=== PATIENT | female | born 1950 | race African-American/Black ===

== ENCOUNTER 2021-11-04 12:52 | Emergency (ER) | payer MEDICARE, MEDICAID ==
[~2021-11-04] VITALS: Ht 167.6 cm; Wt 114.0 kg
[2021-11-04 15:22] LABS: BASOPHILS % 0.3 % (0.0-2.0); CHLORIDE 109 mEq/L (98-107); EOSINOPHILS % 2.6 % (0.0-5.0); HEMATOCRIT. 33.8 % (36.0-48.0); HEMOGLOBIN. 11.2 g/dL (12.0-16.0); LYMPHOCYTES % 19.4 % (20.0-50.0); MEAN CORPUSCULAR HEMOGLOBIN 29.5 pg (28.0-32.0); MEAN CORPUSCULAR VOLUME 89.2 fL (81.0-99.0); MEAN PLATELET VOLUME 8.9 fl (7.4-10.4); MONOCYTES % 7.4 % (2.0-8.0); NEUTROPHILS % 70.3 % (40.0-76.0); PLATELET 260 x1000/uL (130-400); RED BLOOD CELL COUNT 3.79 mill/uL (4.2-5.4); RED CELL DISTRIBUTION WIDTH 15.7 % (11.6-14.6)
[2021-11-04] MEDS ORDERED: KETOROLAC 15MG/ML VIAL IV ONE (17:45)
[2021-11-04 17:48] VITALS: BP 160/74
[2021-11-04] MEDS ORDERED: KETOROLAC 15MG/ML VIAL IM NR (18:00)
[2021-11-04] MEDS ORDERED: KETOROLAC 60MG/2ML VIAL IM NR (18:00)
== END 2021-11-04 19:43 | disposition home or self-care (01) ==
LOC: ER 14:17
DX: S29.8XXA Other specified injuries of thorax, initial encounter (principal); J84.10 Pulmonary fibrosis, unspecified; R07.89 Other chest pain; I11.0 Hypertensive heart disease with heart failure; I50.9 Heart failure, unspecified; J45.909 Unspecified asthma, uncomplicated; Z88.3 Allergy status to other anti-infective agents; Z88.5 Allergy status to narcotic agent; Z90.49 Acquired absence of other specified parts of digestive tract; Z85.3 Personal history of malignant neoplasm of breast; V43.52XA Car driver injured in collision with other type car in traffic accident, initial encounter; W22.11XA Striking against or struck by driver side automobile airbag, initial encounter; Y93.89 Activity, other specified; Y92.488 Other paved roadways as the place of occurrence of the external cause
CPT/HCPCS: 36415; 70450; 71045; 71111; 71250; 80053; 83690; 84484; 85025; 93005; 96372; 99285; J1885

== ENCOUNTER → 2024-09-21 | Outpatient (CLI) | payer MEDICARE, MEDICAID | END | disposition home or self-care (01) | LOC: MRI 14:24 | PROVIDERS: ATTEND Neurological Surgery | DX: M48.05 Spinal stenosis, thoracolumbar region (principal); M47.815 Spondylosis without myelopathy or radiculopathy, thoracolumbar region; M51.27 Other intervertebral disc displacement, lumbosacral region; M51.25 Other intervertebral disc displacement, thoracolumbar region | CPT/HCPCS: 72148 ==

== ENCOUNTER → 2024-09-30 | Outpatient (CLI) | payer MEDICARE, MEDICAID | END | disposition home or self-care (01) | LOC: MRI 09:31 | PROVIDERS: ATTEND Neurological Surgery | DX: M47.812 Spondylosis without myelopathy or radiculopathy, cervical region (principal); M50.33 Other cervical disc degeneration, cervicothoracic region; M50.222 Other cervical disc displacement at C5-C6 level; M48.02 Spinal stenosis, cervical region; M54.50 Low back pain, unspecified | CPT/HCPCS: 72141 ==

== ENCOUNTER 2024-12-14 22:05 | Inpatient (IN) | payer MEDICARE, MEDICAID ==
[~2024-12-14] VITALS: Ht 165.1 cm; Wt 130.6 kg
[~2024-12-14 22:05] MED LIST: ACET-3524 PO; ALBU18HF2 IH; ALLO100T PO; ATOR20TA65 PO; BUDE0.5A3 NEB; CYCL10TA21 PO; DAPA10TA PO; ERGO1250 PO; FLUT1BLS IH; FLUT1BLS3 IH; FURO20TA4 PO; GABA-1180 PO; IPRA3AMP31 NEB; LACT10PA5 PO; LINA145C PO; SEMA2.4P SUBCUT; VALS1TAB79 PO
[2024-12-14 23:00] VITALS: BP 159/73; PULSE 88; RESP 18; TEMP 36.9
[2024-12-14] MEDS ORDERED: IPRATROPIUM/ALBUTEROL 0.5-3(2.5)MG/3ML NEB HHN PRN (23:00)
[2024-12-14] MEDS ORDERED: *PATIENT'S OWN MEDICATION STORAGE XX SCH (23:00)
[2024-12-14] MEDS ORDERED: NALOXONE HCL 0.4MG/ML 1ML VIAL IV PRN (23:00)
[2024-12-14] MEDS ORDERED: BISACODYL 10MG SUPP PR PRN (23:00)
[2024-12-14] MEDS ORDERED: DEXTROSE 50% WATER 50ML SYRINGE IV PRN (23:00)
[2024-12-15] MEDS: CYCLOBENZAPRINE 10MG TABLET PO SCH (05:56)
[2024-12-15 08:00] VITALS: BP 170/80; PULSE 83; RESP 20; TEMP 36.2; O2SAT 97
[2024-12-15] MEDS: PANTOPRAZOLE SODIUM 40 MG/VIAL IV SCH (08:18)
[2024-12-15] MEDS: CLONIDINE 0.1MG TABLET PO PRN (08:18)
[2024-12-15] MEDS: AMLODIPINE 2.5MG TABLET PO SCH (08:18)
[2024-12-15] MEDS: POLYETHYLENE GLYCOL 3350 (17GM) 1 DOSE PACK PO SCH (09:00)
[2024-12-15 09:50] LABS: BASOPHILS % 0.3 % (0.0-2.0); EOSINOPHILS % 2.4 % (0.0-5.0); HEMATOCRIT. 33.7 % (36.0-48.0); HEMOGLOBIN. 10.7 g/dL (12.0-16.0); LYMPHOCYTES % 10.8 % (20.0-50.0); MEAN CORPUSCULAR HEMOGLOBIN 28.9 pg (28.0-32.0); MEAN CORPUSCULAR HGB CONC 31.6 g/dL (31.0-37.0); MEAN CORPUSCULAR VOLUME 91.5 fL (81.0-99.0); MEAN PLATELET VOLUME 8.5 fl (7.4-10.4); NEUTROPHILS % 76.5 % (40.0-76.0); PLATELET 294 x1000/uL (130-400); RED BLOOD CELL COUNT 3.69 mill/uL (4.2-5.4); RED CELL DISTRIBUTION WIDTH 15.3 % (11.6-14.6); WHITE BLOOD COUNT 15.4 x1000/uL (4.5-11.0)
[2024-12-15] MEDS: ATORVASTATIN CALCIUM 20MG TABLET PO SCH (10:00)
[2024-12-15 10:02] LABS: CHLORIDE 111 mEq/L (98-107); POTASSIUM 4.2 mEq/L (3.5-5.1)
[2024-12-15 10:03] LABS: SODIUM 145 mEq/L (136-145)
[2024-12-15 10:05] LABS: CALCIUM 10.9 mg/dL (8.7-10.4); CARBON DIOXIDE 25 mEq/L (21-32)
[2024-12-15 10:10] LABS: CREATININE 1.5 mg/dL (0.6-1.0); GLUCOSE 79 mg/dL (70-105); UREA NITROGEN BLOOD 29 mg/dL (9-23)
[2024-12-15 10:11] LABS: ALANINE AMINOTRANSFERASE 25 IU/L (10-49)
[2024-12-15 10:12] LABS: ALBUMIN 3.6 g/dL (3.2-4.8); ASPARTATE AMINOTRANSFERASE 39 IU/L (<34); BILIRUBIN TOTAL 0.9 mg/dL (0.1-1.0); PREALBUMIN 5.7 mg/dl (10.0-40.0); PROTEIN TOTAL 6.6 g/dL (6.0-8.3)
[2024-12-15] MEDS ORDERED: HYDRALAZINE 20MG/ML VIAL IV PRN (14:15)
[2024-12-15] MEDS ORDERED: HYDRALAZINE 10 MG in SODIUM CHLORIDE 0.9% 49.5 ML IV PRN (14:15)
[2024-12-15] MEDS ORDERED: DEXTROSE 50% WATER 50ML SYRINGE IV PRN (14:15)
[2024-12-15] MEDS: AMLODIPINE 5MG TABLET PO NR (15:23)
[2024-12-15] MEDS: LOSARTAN 50 MG TABLET PO SCH (15:23)
[2024-12-15] MEDS: HYDROCODONE/ACETAMINOPHEN 5/325MG TABLET PO PRN (16:37)
[2024-12-15] MEDS: BLOOD SUGAR DIAGNOSTIC STRIP TEST SCH (16:37)
[2024-12-15 17:24] LABS: IRON 31 ug/dL (50-170)
[2024-12-15 17:27] LABS: TOTAL IRON BINDING CAPACITY 580 ug/dl (250-425)
[2024-12-15 17:30] LABS: FERRITIN 400 ng/mL (10-291)
[2024-12-15 17:31] LABS: VITAMIN B12 SERUM 507 pg/mL (211-911)
[2024-12-15] MEDS: DEXT 5%/0.45% NACL 1000ML 1,000 ML IV SCH (18:30)
[2024-12-15 19:51] VITALS: BP 104/58; PULSE 90; RESP 18; TEMP 36.2; O2SAT 97
[2024-12-15] MEDS: AMLODIPINE 5MG TABLET PO SCH (21:00)
[2024-12-16 06:39] LABS: AMMONIA < 17 uMol/L (<32)
[2024-12-16 07:14] LABS: BASOPHILS % 0.2 % (0.0-2.0); CHLORIDE 112 mEq/L (98-107); EOSINOPHILS % 3.3 % (0.0-5.0); HEMATOCRIT. 31.2 % (36.0-48.0); HEMOGLOBIN. 9.8 g/dL (12.0-16.0); MEAN CORPUSCULAR HEMOGLOBIN 29.2 pg (28.0-32.0); MEAN CORPUSCULAR HGB CONC 31.5 g/dL (31.0-37.0); MEAN PLATELET VOLUME 8.4 fl (7.4-10.4); NEUTROPHILS % 73.5 % (40.0-76.0); PLATELET 253 x1000/uL (130-400); POTASSIUM 4.2 mEq/L (3.5-5.1); RED BLOOD CELL COUNT 3.36 mill/uL (4.2-5.4); RED CELL DISTRIBUTION WIDTH 15.3 % (11.6-14.6); SODIUM 145 mEq/L (136-145); WHITE BLOOD COUNT 15.1 x1000/uL (4.5-11.0)
[2024-12-16 07:17] LABS: CARBON DIOXIDE 25 mEq/L (21-32)
[2024-12-16 07:20] LABS: THYROID STIMULATING HORMONE 0.95 uIU/mL (0.55-4.78)
[2024-12-16 07:21] LABS: PROTEIN TOTAL 6.3 g/dL (6.0-8.3)
[2024-12-16 07:22] LABS: CREATININE 1.5 mg/dL (0.6-1.0); GLUCOSE 117 mg/dL (70-105); IRON 23 ug/dL (50-170); UREA NITROGEN BLOOD 29 mg/dL (9-23)
[2024-12-16 07:24] LABS: ALANINE AMINOTRANSFERASE 19 IU/L (10-49); ALBUMIN 3.4 g/dL (3.2-4.8); ASPARTATE AMINOTRANSFERASE 28 IU/L (<34); BILIRUBIN TOTAL 0.8 mg/dL (0.1-1.0); TOTAL IRON BINDING CAPACITY 442 ug/dl (250-425)
[2024-12-16 08:00] VITALS: BP 140/77; PULSE 78; RESP 20; TEMP 35.5; O2SAT 97
[2024-12-16] MEDS: KETOROLAC 15MG/ML VIAL IV PRN (16:22)
[2024-12-16 17:19] LABS: CLARITY URINE CLEAR (CLEAR); COLOR URINE YELLOW (YELLOW); GLUCOSE URINE NEGATIVE (NEGATIVE); KETONES URINE NEGATIVE (NEGATIVE); LEUKOCYTE ESTERASE URINE TRACE (NEGATIVE); NITRITE URINE NEGATIVE (NEGATIVE); OCCULT BLOOD URINE NEGATIVE (NEGATIVE); PROTEIN URINE 1+ (NEGATIVE); SPECIFIC GRAVITY URINE 1.016 (1.005-1.030)
[2024-12-16 17:46] LABS: WBC URINE 0-2 /hpf (0-2)
[2024-12-16 17:47] LABS: BACTERIA URINE NONE SEEN; RBC URINE NONE SEEN /hpf (0-2); SQUAMOUS EPITHELIAL CELL URINE NONE SEEN /lpf (RARE/1+)
[2024-12-16] MEDS ORDERED: ACETAMINOPHEN 325MG TABLET PO PRN (18:45)
[2024-12-16 20:00] VITALS: BP 162/56; PULSE 68; RESP 18; TEMP 36.3; O2SAT 96
[2024-12-17 08:00] VITALS: BP 182/90; PULSE 72; RESP 20; TEMP 36.6; O2SAT 95
[2024-12-17] MEDS: GABAPENTIN 300MG CAPSULE PO SCH (08:29)
[2024-12-17] MEDS: ERGOCALCIFEROL 50000UNITS CAPSULE PO SCH (15:31)
[2024-12-18 08:00] VITALS: BP 172/79; PULSE 82; RESP 20; TEMP 36; O2SAT 97
[2024-12-18] MEDS: ALLOPURINOL 100 MG TABLET PO SCH (08:36)
[2024-12-18] MEDS: PANTOPRAZOLE 40MG DR TABLET PO SCH (08:37)
[2024-12-18] MEDS: APIXABAN 5 MG TABLET PO SCH (12:27)
[2024-12-18] MEDS: HYDRALAZINE HCL 50MG TABLET PO SCH (14:19)
[2024-12-18 20:00] VITALS: BP 104/62; PULSE 96; RESP 18; TEMP 36.6; O2SAT 96
[2024-12-19 08:00] VITALS: BP 142/57; PULSE 81; RESP 20; TEMP 35.8; TEMP 36.2; O2SAT 92
[2024-12-19 08:33] LABS: POTASSIUM 4.3 mEq/L (3.5-5.1)
[2024-12-19 08:34] LABS: CALCIUM 10.5 mg/dL (8.7-10.4)
[2024-12-19 08:34] LABS: HEMATOCRIT. 33.4 % (36.0-48.0); HEMOGLOBIN. 10.2 g/dL (12.0-16.0); MEAN CORPUSCULAR HEMOGLOBIN 28.4 pg (28.0-32.0); MEAN CORPUSCULAR HGB CONC 30.4 g/dL (31.0-37.0); MEAN CORPUSCULAR VOLUME 93.4 fL (81.0-99.0); MEAN PLATELET VOLUME 8.8 fl (7.4-10.4); PLATELET 230 x1000/uL (130-400); RED BLOOD CELL COUNT 3.58 mill/uL (4.2-5.4); RED CELL DISTRIBUTION WIDTH 15.5 % (11.6-14.6); WHITE BLOOD COUNT 18.6 x1000/uL (4.5-11.0)
[2024-12-19 08:44] LABS: DIFFERENTIAL COMMENT 1
[2024-12-19 08:55] LABS: CREATININE 3.2 mg/dL (0.6-1.0)
[2024-12-19 14:53] LABS: CREATINE KINASE 80 IU/L (34-145)
[2024-12-19 15:23] LABS: PLATELET ESTIMATE NORMAL
[2024-12-19] MEDS: PIPERACILLIN/TAZO 3.375G/50ML 50 ML IV SCH (19:54)
[2024-12-19] MEDS: VANCOMYCIN 1GM/200ML PMX (BAXTER) IV SCH (19:54)
[2024-12-19 20:00] VITALS: BP 136/64; PULSE 68; RESP 18; TEMP 36.3; O2SAT 97
[2024-12-20] MEDS: VANCOMYCIN 1GM/200ML PMX (BAXTER) IV SCH (01:00)
[2024-12-20] MEDS: PANTOPRAZOLE 40MG DR TABLET PO SCH (06:22)
[2024-12-20 07:22] LABS: CALCIUM 10.3 mg/dL (8.7-10.4); POTASSIUM 4.6 mEq/L (3.5-5.1)
[2024-12-20 07:30] LABS: HEMATOCRIT. 32.6 % (36.0-48.0); HEMOGLOBIN. 10.1 g/dL (12.0-16.0); MEAN CORPUSCULAR HEMOGLOBIN 29.1 pg (28.0-32.0); MEAN PLATELET VOLUME 8.9 fl (7.4-10.4); PLATELET 250 x1000/uL (130-400); RED BLOOD CELL COUNT 3.46 mill/uL (4.2-5.4); RED CELL DISTRIBUTION WIDTH 15.8 % (11.6-14.6); WHITE BLOOD COUNT 16.9 x1000/uL (4.5-11.0)
[2024-12-20 07:44] LABS: DIFFERENTIAL COMMENT 1
[2024-12-20 08:00] VITALS: BP 142/62; PULSE 75; RESP 20; TEMP 35.9; O2SAT 100
[2024-12-20 09:43] LABS: CREATININE 4.2 mg/dL (0.6-1.0)
[2024-12-20] MEDS: VANCOMYCIN 1GM PMX (XELLIA) 200 ML IV SCH ×2 (10:56→14:45)
[2024-12-20] MEDS: SODIUM CHLORIDE 0.45% 1,000 ML IV ONE ×2 (10:57→16:10)
[2024-12-20 15:09] LABS: BG BASE EXCESS -5.5 mmol/L (-2.0-3.0); BG CARBOXYHEMOGLOBIN 0.4 % (0.5-1.5); BG DEOXYHEMOGLOBIN 5.5 % (0.0-5.0); BG FRACTION INSPIRED OXYGEN 21; BG HCO3 ACT 20.7 mmol/L (21.0-28.0); BG METHEMOGLOBIN 0.3 % (0.5-1.5); BG OXYGEN SATURATION 94.5 % (94.0-98.0); BG OXYHEMOGLOBIN 93.8 % (94.0-98.0); BG PCO2 43.2 mmHg (32.0-45.0); BG PH 7.298 (7.350-7.450); BG PO2 73.2 mmHg (83.0-108.0); BG SAMPLE SITE RIGHT RADIAL; BG TOTAL HEMOGLOBIN 10.3 g/dL (12.0-16.0); BG VENT MODE ROOM AIR
[2024-12-20] MEDS: DEXT 5%/0.45% NACL 1000ML 1,000 ML IV SCH (16:00)
[2024-12-20 17:51] LABS: PLATELET ESTIMATE NORMAL
[2024-12-20 20:00] VITALS: BP 136/68; PULSE 91; RESP 19; TEMP 36.2; O2SAT 98
[2024-12-21 08:00] VITALS: BP 88/42; PULSE 87; RESP 18; TEMP 37.2; O2SAT 100
[2024-12-21] MEDS: MULTIVITAMINS,THER W-MINERALS TABLET PO SCH (11:13)
[2024-12-21 11:45] LABS: HEMATOCRIT. 31.6 % (36.0-48.0); HEMOGLOBIN. 9.6 g/dL (12.0-16.0); MEAN CORPUSCULAR HGB CONC 30.3 g/dL (31.0-37.0); MEAN CORPUSCULAR VOLUME 95.5 fL (81.0-99.0); MEAN PLATELET VOLUME 8.5 fl (7.4-10.4); PLATELET 270 x1000/uL (130-400); RED BLOOD CELL COUNT 3.31 mill/uL (4.2-5.4); WHITE BLOOD COUNT 15.6 x1000/uL (4.5-11.0)
[2024-12-21 11:55] LABS: CHLORIDE 106 mEq/L (98-107); POTASSIUM 5.6 mEq/L (3.5-5.1); SODIUM 137 mEq/L (136-145)
[2024-12-21 11:56] LABS: CALCIUM 9.8 mg/dL (8.7-10.4); CARBON DIOXIDE 22 mEq/L (21-32)
[2024-12-21 11:58] LABS: DIFFERENTIAL COMMENT 1
[2024-12-21 12:01] LABS: GLUCOSE 114 mg/dL (70-105)
[2024-12-21 12:02] LABS: UREA NITROGEN BLOOD 57 mg/dL (9-23)
[2024-12-21 12:25] LABS: CREATININE 6.1 mg/dL (0.6-1.0)
[2024-12-21] MEDS ORDERED: SODIUM POLYSTYRENE SULFONATE 15 G/60 ML BOT PO ONE (14:00)
[2024-12-21 14:23] LABS: PLATELET ESTIMATE NORMAL
[2024-12-21] MEDS: SODIUM ZIRCONIUM CYCLOSILICATE 10GM/PACKET PO NR (14:43)
[2024-12-21] MEDS ORDERED: REVE175V IH (15:48)
[2024-12-21 20:00] VITALS: BP 131/55; PULSE 70; RESP 18; TEMP 36.6; O2SAT 100
[2024-12-21 21:29] LABS: CREATININE 6.2 mg/dL (0.6-1.0)
[2024-12-22 08:00] VITALS: BP 129/71; PULSE 76; RESP 18; TEMP 36.2; O2SAT 98
[2024-12-22] MEDS ORDERED: FAMOTIDINE 20MG TABLET PO SCH (09:00)
[2024-12-22] MEDS ORDERED: AMLODIPINE 2.5MG TABLET PO SCH (09:00)
[2024-12-22 11:25] LABS: BG BASE EXCESS -9.8 mmol/L (-2.0-3.0); BG CARBOXYHEMOGLOBIN 0.1 % (0.5-1.5); BG DEOXYHEMOGLOBIN 1.9 % (0.0-5.0); BG FRACTION INSPIRED OXYGEN 28; BG HCO3 ACT 19.1 mmol/L (21.0-28.0); BG METHEMOGLOBIN 0.3 % (0.5-1.5); BG OXYGEN SATURATION 98.1 % (94.0-98.0); BG OXYHEMOGLOBIN 97.7 % (94.0-98.0); BG PCO2 57.4 mmHg (32.0-45.0); BG PH 7.139 (7.350-7.450); BG PO2 108.9 mmHg (83.0-108.0); BG SAMPLE SITE LEFT RADIAL; BG TOTAL HEMOGLOBIN 9.8 g/dL (12.0-16.0); BG VENT MODE NASAL CANNULA
[2024-12-22 11:45] VITALS: RESP 17
[2024-12-22 11:51] VITALS: BP 135/80; PULSE 69; TEMP 97.8; O2SAT 98
[2024-12-22] MEDS ORDERED: IPRATROPIUM/ALBUTEROL 0.5-3(2.5)MG/3ML NEB HHN SCH ×2 (12:00)
[2024-12-22] MEDS: IPRATROPIUM/ALBUTEROL 0.5-3(2.5)MG/3ML NEB HHN SCH (12:12)
[2024-12-22] MEDS: BUDESONIDE 0.5MG/2ML NEB HHN SCH (12:12)
[2024-12-22] MEDS ORDERED: METHYLPREDNISOLONE SOD SUCC 125MG/2ML (ACT-O-VIAL) IV NR (12:15)
[2024-12-22 13:39] LABS: HEMATOCRIT. 27.7 % (36.0-48.0); HEMOGLOBIN. 8.4 g/dL (12.0-16.0); MEAN CORPUSCULAR HEMOGLOBIN 28.9 pg (28.0-32.0); MEAN CORPUSCULAR HGB CONC 30.4 g/dL (31.0-37.0); MEAN PLATELET VOLUME 8.5 fl (7.4-10.4); PLATELET 265 x1000/uL (130-400); RED BLOOD CELL COUNT 2.91 mill/uL (4.2-5.4); RED CELL DISTRIBUTION WIDTH 15.3 % (11.6-14.6); WHITE BLOOD COUNT 15.1 x1000/uL (4.5-11.0)
[2024-12-22 13:46] LABS: DIFFERENTIAL COMMENT 1
[2024-12-22 13:47] LABS: POTASSIUM 5.6 mEq/L (3.5-5.1)
[2024-12-22 13:48] LABS: CALCIUM 9.8 mg/dL (8.7-10.4)
[2024-12-22] MEDS ORDERED: HYDROCORTISONE SOD SUCCINATE 100 MG/2 ML VIAL IV SCH (14:00)
[2024-12-22 17:06] LABS: PLATELET ESTIMATE NORMAL
[2024-12-22] MEDS ORDERED: METHYLPREDNISOLONE SOD SUCC 125MG/2ML (ACT-O-VIAL) IV SCH (22:00)
== END 2024-12-22 12:31 | disposition short-term general hospital (02) | DRG 551 ==
PROVIDERS: ADMIT Physical Medicine & Rehabilitation Spinal Cord Injury Medicine; ATTEND Internal Medicine
PROC: 02HV33Z Insertion of Infusion Device into Superior Vena Cava, Percutaneous Approach (ICD-10-PCS; principal; 2024-12-20)
PROC: B548ZZA Ultrasonography of Superior Vena Cava, Guidance (ICD-10-PCS; 2024-12-20)
DX: M48.02 Spinal stenosis, cervical region (principal); G82.50 Quadriplegia, unspecified; G93.41 Metabolic encephalopathy; J96.01 Acute respiratory failure with hypoxia; I13.0 Hypertensive heart and chronic kidney disease with heart failure and stage 1 through stage 4 chronic kidney disease, or unspecified chronic kidney disease; I16.1 Hypertensive emergency; I82.432 Acute embolism and thrombosis of left popliteal vein; N17.9 Acute kidney failure, unspecified; Z68.42 Body mass index [BMI] 45.0-49.9, adult; F03.92 Unspecified dementia, unspecified severity, with psychotic disturbance; F03.93 Unspecified dementia, unspecified severity, with mood disturbance; F03.94 Unspecified dementia, unspecified severity, with anxiety; F33.1 Major depressive disorder, recurrent, moderate; E87.29 Other acidosis; G95.20 Unspecified cord compression; D64.9 Anemia, unspecified; D72.829 Elevated white blood cell count, unspecified; E66.01 Morbid (severe) obesity due to excess calories; E78.00 Pure hypercholesterolemia, unspecified; E87.5 Hyperkalemia; I50.9 Heart failure, unspecified; J45.909 Unspecified asthma, uncomplicated; M50.10 Cervical disc disorder with radiculopathy, unspecified cervical region; N18.9 Chronic kidney disease, unspecified; R13.10 Dysphagia, unspecified; R26.9 Unspecified abnormalities of gait and mobility; E55.9 Vitamin D deficiency, unspecified; F29 Unspecified psychosis not due to a substance or known physiological condition; F41.1 Generalized anxiety disorder; F43.20 Adjustment disorder, unspecified; K59.00 Constipation, unspecified; E83.52 Hypercalcemia; G47.33 Obstructive sleep apnea (adult) (pediatric); E78.5 Hyperlipidemia, unspecified; I95.9 Hypotension, unspecified; R53.83 Other fatigue; Z79.01 Long term (current) use of anticoagulants; Z79.899 Other long term (current) drug therapy; Z82.49 Family history of ischemic heart disease and other diseases of the circulatory system; Z85.3 Personal history of malignant neoplasm of breast; Z88.5 Allergy status to narcotic agent; Z90.12 Acquired absence of left breast and nipple; Z91.81 History of falling; Z79.51 Long term (current) use of inhaled steroids; Z95.828 Presence of other vascular implants and grafts; Z86.718 Personal history of other venous thrombosis and embolism; Z88.8 Allergy status to other drugs, medicaments and biological substances; Z92.21 Personal history of antineoplastic chemotherapy; Z98.1 Arthrodesis status; M54.12 Radiculopathy, cervical region
CPT/HCPCS: 36415; 36573; 36600; 71045; 74176; 80048; 80053; 80202; 81003; 82140; 82306; 82375; 82550; 82607; 82728; 82746; 82805; 82962; 83036; 83540; 83550; 83735; 84134; 84145; 84443; 85025; 92523; 92610; 93970; 94070; 94660; 94664; 97110; 97163; 97166; 97530; 97535; A4565; A4606; C1725; J1885; J2470; J2543; J3370; J7626

== ENCOUNTER 2024-12-22 13:23 | Inpatient (IN) | payer MEDICARE, MEDICAID ==
[2024-12-22] VITALS (9 sets, daily range): BP systolic 118–147; BP diastolic 65–90; PULSE 76–82; RESP 17–24; TEMP 36.2–36.7; O2SAT 98–99
[~2024-12-22] VITALS: Ht 170.2 cm; Wt 140.2 kg
[~2024-12-22 13:23] MED LIST changes: -FLUT1BLS IH; -IPRA3AMP31 NEB; -LINA145C PO; +REVE175V IH; -SEMA2.4P SUBCUT
[2024-12-22] MEDS ORDERED: MAGNESIUM/ALUMINUM HYDROXIDE/SIMETHICONE 30ML UDC PO PRN (14:00)
[2024-12-22] MEDS ORDERED: CLONIDINE 0.1MG TABLET PO PRN (14:00)
[2024-12-22] MEDS ORDERED: GUAIFENESIN 200MG/10ML SUGAR FREE UDC PO PRN (14:00)
[2024-12-22] MEDS ORDERED: IPRATROPIUM/ALBUTEROL 0.5-3(2.5)MG/3ML NEB HHN PRN (14:00)
[2024-12-22] MEDS ORDERED: ONDANSETRON HCL 4MG/2ML INJ IV PRN (14:00)
[2024-12-22] MEDS ORDERED: DOCUSATE SODIUM 100MG CAPSULE PO PRN (14:00)
[2024-12-22] MEDS: NALOXONE HCL 0.4MG/ML 1ML VIAL IV NR (14:25)
[2024-12-22] MEDS: METHYLPREDNISOLONE SOD SUCC 125MG/2ML (ACT-O-VIAL) IV NR (14:26)
[2024-12-22] MEDS ORDERED: SODIUM POLYSTYRENE SULFONATE 15 G/60 ML BOT PO ONE (14:45)
[2024-12-22 14:57] LABS: BG BASE EXCESS -7.7 mmol/L (-2.0-3.0); BG DEOXYHEMOGLOBIN 1.5 % (0.0-5.0); BG FRACTION INSPIRED OXYGEN 30; BG HCO3 ACT 21.1 mmol/L (21.0-28.0); BG OXYGEN SATURATION 98.5 % (94.0-98.0); BG OXYHEMOGLOBIN 98.5 % (94.0-98.0); BG PCO2 60.6 mmHg (32.0-45.0); BG PH 7.159 (7.350-7.450); BG PO2 116.5 mmHg (83.0-108.0); BG SAMPLE SITE LEFT RADIAL; BG TOTAL HEMOGLOBIN 9.8 g/dL (12.0-16.0); BG TOTAL RESPIRATORY RATE 18 b/min; BG VENT MODE MASK - BIPAP
[2024-12-22] MEDS ORDERED: DEXTROSE 50% WATER 50ML SYRINGE IV PRN (15:00)
[2024-12-22] MEDS: PANTOPRAZOLE SODIUM 40 MG/VIAL IV SCH (15:00)
[2024-12-22] MEDS ORDERED: SODIUM ZIRCONIUM CYCLOSILICATE 10GM/PACKET PO ONE (15:15)
[2024-12-22] MEDS ORDERED: VANCOMYCIN 1GM/200ML PMX (BAXTER) IV NR (16:00)
[2024-12-22] MEDS: SODIUM ZIRCONIUM CYCLOSILICATE 10GM/PACKET PO SCH (16:19)
[2024-12-22] MEDS: DEXT 5%/0.45% NACL 1000ML 1,000 ML IV SCH (16:33)
[2024-12-22] MEDS: PIPERACILLIN/TAZO 3.375G/50ML IV NR (16:34)
[2024-12-22] MEDS: IPRATROPIUM/ALBUTEROL 0.5-3(2.5)MG/3ML NEB HHN SCH (16:49)
[2024-12-22] MEDS: BLOOD SUGAR DIAGNOSTIC STRIP TEST SCH (17:30)
[2024-12-22 17:48] LABS: BG BASE EXCESS -7.6 mmol/L (-2.0-3.0); BG CARBOXYHEMOGLOBIN 0.1 % (0.5-1.5); BG DEOXYHEMOGLOBIN 1.4 % (0.0-5.0); BG FRACTION INSPIRED OXYGEN 30; BG METHEMOGLOBIN 0.3 % (0.5-1.5); BG OXYGEN SATURATION 98.6 % (94.0-98.0); BG OXYHEMOGLOBIN 98.2 % (94.0-98.0); BG PCO2 59.4 mmHg (32.0-45.0); BG PH 7.167 (7.350-7.450); BG PO2 111.5 mmHg (83.0-108.0); BG SAMPLE SITE LEFT RADIAL; BG TOTAL HEMOGLOBIN 9.8 g/dL (12.0-16.0); BG TOTAL RESPIRATORY RATE 20 b/min; BG VENT MODE MASK - BIPAP
[2024-12-22] MEDS: NALOXONE HCL 1MG/ML 2ML VIAL IV NR (18:40)
[2024-12-22] MEDS: CALCIUM GLUCONATE 100MG/ML 10ML VIAL IV NR (18:41)
[2024-12-22 21:09] LABS: HEMATOCRIT. 29.1 % (36.0-48.0); MEAN CORPUSCULAR HEMOGLOBIN 28.9 pg (28.0-32.0); MEAN CORPUSCULAR HGB CONC 30.8 g/dL (31.0-37.0); MEAN CORPUSCULAR VOLUME 94.1 fL (81.0-99.0); MEAN PLATELET VOLUME 8.4 fl (7.4-10.4); PLATELET 305 x1000/uL (130-400); RED CELL DISTRIBUTION WIDTH 15.2 % (11.6-14.6); WHITE BLOOD COUNT 14.6 x1000/uL (4.5-11.0)
[2024-12-22 21:12] LABS: DIFFERENTIAL COMMENT 1
[2024-12-22 21:18] LABS: CHLORIDE 104 mEq/L (98-107); POTASSIUM 5.9 mEq/L (3.5-5.1); SODIUM 134 mEq/L (136-145)
[2024-12-22 21:19] LABS: CARBON DIOXIDE 21 mEq/L (21-32)
[2024-12-22 21:23] LABS: BG CARBOXYHEMOGLOBIN 0.7 % (0.5-1.5); BG DEOXYHEMOGLOBIN 3.5 % (0.0-5.0); BG FRACTION INSPIRED OXYGEN 30; BG METHEMOGLOBIN 0.1 % (0.5-1.5); BG OXYGEN SATURATION 96.5 % (94.0-98.0); BG OXYHEMOGLOBIN 95.7 % (94.0-98.0); BG PCO2 51.6 mmHg (32.0-45.0); BG PH 7.184 (7.350-7.450); BG PO2 84.4 mmHg (83.0-108.0); BG SAMPLE SITE RIGHT RADIAL; BG TOTAL HEMOGLOBIN 9.8 g/dL (12.0-16.0); BG VENT MODE HIGH FLOW
[2024-12-22 21:23] LABS: URIC ACID 10.2 mg/dL (3.1-7.8)
[2024-12-22 21:24] LABS: GLUCOSE 123 mg/dL (70-105); UREA NITROGEN BLOOD 69 mg/dL (9-23)
[2024-12-22 21:25] LABS: AMMONIA < 17 uMol/L (<32); TROPONIN I HIGH SENSITIVITY 11 ng/L (3.0-34)
[2024-12-22 21:26] LABS: ALANINE AMINOTRANSFERASE 12 IU/L (10-49); ALBUMIN 3.9 g/dL (3.2-4.8); ASPARTATE AMINOTRANSFERASE 17 IU/L (<34); BILIRUBIN DIRECT 0.2 mg/dL (<=3.0); BILIRUBIN TOTAL 0.4 mg/dL (0.1-1.0); PROTEIN TOTAL 7.6 g/dL (6.0-8.3)
[2024-12-22 21:37] LABS: CREATININE 7.5 mg/dL (0.6-1.0)
[2024-12-22 21:51] LABS: PLATELET ESTIMATE NORMAL
[2024-12-23] VITALS (24 sets, daily range): BP systolic 132–181; BP diastolic 54–88; PULSE 59–96; RESP 13–24; TEMP 36.3–36.44736; O2SAT 98–100
[2024-12-23 01:01] LABS: CREATINE KINASE 59 IU/L (34-145)
[2024-12-23 01:02] LABS: TROPONIN I HIGH SENSITIVITY 10 ng/L (3.0-34)
[2024-12-23] MEDS: PIPERACILLIN/TAZO 3.375G/50ML 50 ML IV SCH (01:10)
[2024-12-23] MEDS: SODIUM BICARBONATE 8.4% 50MEQ/50ML SYR IV NR ×2 (01:12→11:33)
[2024-12-23] MEDS: CEFTRIAXONE 1GM/50ML 50 ML IV NR (01:20)
[2024-12-23] MEDS: METHYLPREDNISOLONE SOD SUCC 125MG/2ML (ACT-O-VIAL) IV SCH ×2 (01:44→10:14)
[2024-12-23] MEDS: BLOOD SUGAR DIAGNOSTIC STRIP TEST SCH (05:15)
[2024-12-23 06:10] LABS: CHLORIDE 104 mEq/L (98-107)
[2024-12-23 06:11] LABS: CARBON DIOXIDE 22 mEq/L (21-32); POTASSIUM 5.7 mEq/L (3.5-5.1); SODIUM 136 mEq/L (136-145)
[2024-12-23 06:12] LABS: CALCIUM 9.6 mg/dL (8.7-10.4)
[2024-12-23 06:16] LABS: GLUCOSE 121 mg/dL (70-105)
[2024-12-23 06:17] LABS: UREA NITROGEN BLOOD 74 mg/dL (9-23)
[2024-12-23 06:19] LABS: AMMONIA < 17 uMol/L (<32); CREATININE 7.8 mg/dL (0.6-1.0); PHOSPHORUS 6.8 mg/dL (2.5-4.9)
[2024-12-23 06:30] LABS: HEMATOCRIT. 26.9 % (36.0-48.0); HEMOGLOBIN. 8.6 g/dL (12.0-16.0); MEAN CORPUSCULAR HEMOGLOBIN 29.6 pg (28.0-32.0); MEAN CORPUSCULAR HGB CONC 31.9 g/dL (31.0-37.0); MEAN CORPUSCULAR VOLUME 92.9 fL (81.0-99.0); MEAN PLATELET VOLUME 8.6 fl (7.4-10.4); PLATELET 282 x1000/uL (130-400); RED CELL DISTRIBUTION WIDTH 15.5 % (11.6-14.6)
[2024-12-23 06:32] LABS: PARTIAL THROMBOPLASTIN TIME 26.2 sec (23.4-31.0); PROTHROMBIN TIME 11.2 sec (9.6-11.0)
[2024-12-23 06:46] LABS: ERYTHROCYTE SEDIMENTATION RATE 121 mm/hr (0-30)
[2024-12-23 06:55] LABS: D-DIMER > 35.20 mg/L FEU (<0.50)
[2024-12-23 07:01] LABS: DIFFERENTIAL COMMENT 1
[2024-12-23 10:22] LABS: BG BASE EXCESS -8.4 mmol/L (-2.0-3.0); BG CARBOXYHEMOGLOBIN 0.1 % (0.5-1.5); BG DEOXYHEMOGLOBIN 1.7 % (0.0-5.0); BG HCO3 ACT 18.4 mmol/L (21.0-28.0); BG METHEMOGLOBIN 0.3 % (0.5-1.5); BG OXYGEN SATURATION 98.3 % (94.0-98.0); BG OXYHEMOGLOBIN 97.9 % (94.0-98.0); BG PCO2 43.4 mmHg (32.0-45.0); BG PH 7.246 (7.350-7.450); BG PO2 114.5 mmHg (83.0-108.0); BG SAMPLE SITE ALINE; BG TOTAL HEMOGLOBIN 9.5 g/dL (12.0-16.0); BG VENT MODE NASAL CANNULA
[2024-12-23] MEDS: HYDRALAZINE 20MG/ML VIAL IV PRN (12:14)
[2024-12-23] MEDS ORDERED: LIDOCAINE HCL 1% 10 MG/ML 10ML VIAL ONE (12:49)
[2024-12-23 13:58] LABS: PLATELET ESTIMATE NORMAL
[2024-12-23] MEDS: AMLODIPINE 2.5MG TABLET PO SCH (18:08)
[2024-12-24] VITALS (16 sets, daily range): BP systolic 133–164; BP diastolic 54–81; PULSE 77–88; RESP 14–23; TEMP 36.2–36.6; O2SAT 95–99
[2024-12-24 05:58] LABS: HEMATOCRIT. 26.5 % (36.0-48.0); HEMOGLOBIN. 8.5 g/dL (12.0-16.0); MEAN CORPUSCULAR HEMOGLOBIN 29.1 pg (28.0-32.0); MEAN CORPUSCULAR HGB CONC 31.9 g/dL (31.0-37.0); MEAN CORPUSCULAR VOLUME 91.1 fL (81.0-99.0); MEAN PLATELET VOLUME 8.7 fl (7.4-10.4); PLATELET 287 x1000/uL (130-400); RED BLOOD CELL COUNT 2.91 mill/uL (4.2-5.4); RED CELL DISTRIBUTION WIDTH 15.2 % (11.6-14.6); WHITE BLOOD COUNT 13.4 x1000/uL (4.5-11.0)
[2024-12-24 06:10] LABS: POTASSIUM 4.3 mEq/L (3.5-5.1)
[2024-12-24 06:11] LABS: CALCIUM 9.9 mg/dL (8.7-10.4)
[2024-12-24 06:28] LABS: HEPATITIS B SURFACE AB < 3.1 mIU/mL (<10)
[2024-12-24 06:33] LABS: DIFFERENTIAL COMMENT 1
[2024-12-24 06:39] LABS: HEPATITIS B SURFACE ANTIGEN NEGATIVE (Negative)
[2024-12-24 06:47] LABS: CREATININE 5.9 mg/dL (0.6-1.0)
[2024-12-24 07:00] LABS: HEPATITIS A AB IGM NEGATIVE (Negative)
[2024-12-24 07:01] LABS: HEPATITIS B CORE AB IGM NEGATIVE (Negative); HEPATITIS C AB NON REACTIVE (Neg) (Negative)
[2024-12-24 08:30] LABS: BG BASE EXCESS -2.4 mmol/L (-2.0-3.0); BG CARBOXYHEMOGLOBIN 0.3 % (0.5-1.5); BG DEOXYHEMOGLOBIN 2.1 % (0.0-5.0); BG FRACTION INSPIRED OXYGEN 34; BG HCO3 ACT 24.5 mmol/L (21.0-28.0); BG METHEMOGLOBIN 0.3 % (0.5-1.5); BG OXYGEN SATURATION 97.9 % (94.0-98.0); BG OXYHEMOGLOBIN 97.3 % (94.0-98.0); BG PCO2 53.2 mmHg (32.0-45.0); BG PH 7.282 (7.350-7.450); BG PO2 111.3 mmHg (83.0-108.0); BG SAMPLE SITE RIGHT RADIAL; BG TOTAL HEMOGLOBIN 9.3 g/dL (12.0-16.0); BG VENT MODE NASAL CANNULA
[2024-12-24] MEDS: FAMOTIDINE 20MG/2ML VIAL IV SCH (08:56)
[2024-12-24] MEDS: PREDNISONE 20MG TABLET PO SCH (08:57)
[2024-12-24 12:00] LABS: ANISOCYTOSIS 1+; PLATELET ESTIMATE NORMAL
[2024-12-25] VITALS (22 sets, daily range): BP systolic 77–146; BP diastolic 60–77; PULSE 67–93; RESP 13–24; TEMP 36.5–38.4; O2SAT 91–100
[2024-12-25 06:54] LABS: BASOPHILS % 0.2 % (0.0-2.0); EOSINOPHILS % 0.4 % (0.0-5.0); HEMATOCRIT. 28.5 % (36.0-48.0); HEMOGLOBIN. 9.2 g/dL (12.0-16.0); LYMPHOCYTES % 10.6 % (20.0-50.0); MEAN CORPUSCULAR HEMOGLOBIN 29.3 pg (28.0-32.0); MEAN CORPUSCULAR HGB CONC 32.2 g/dL (31.0-37.0); MEAN CORPUSCULAR VOLUME 91.1 fL (81.0-99.0); MEAN PLATELET VOLUME 8.5 fl (7.4-10.4); MONOCYTES % 12.4 % (2.0-8.0); NEUTROPHILS % 76.4 % (40.0-76.0); PLATELET 300 x1000/uL (130-400); POTASSIUM 4.2 mEq/L (3.5-5.1); RED BLOOD CELL COUNT 3.12 mill/uL (4.2-5.4); RED CELL DISTRIBUTION WIDTH 15.2 % (11.6-14.6); WHITE BLOOD COUNT 10.8 x1000/uL (4.5-11.0)
[2024-12-25 06:55] LABS: CALCIUM 9.5 mg/dL (8.7-10.4)
[2024-12-25] MEDS: ACETAMINOPHEN 650MG SUPP PR PRN (08:02)
[2024-12-25 09:21] LABS: BG BASE EXCESS -6.2 mmol/L (-2.0-3.0); BG CARBOXYHEMOGLOBIN 0.4 % (0.5-1.5); BG DEOXYHEMOGLOBIN 1.9 % (0.0-5.0); BG FRACTION INSPIRED OXYGEN 32; BG HCO3 ACT 19.8 mmol/L (21.0-28.0); BG METHEMOGLOBIN 0.1 % (0.5-1.5); BG OXYGEN SATURATION 98.1 % (94.0-98.0); BG OXYHEMOGLOBIN 97.6 % (94.0-98.0); BG PCO2 41.7 mmHg (32.0-45.0); BG PH 7.295 (7.350-7.450); BG PO2 115.1 mmHg (83.0-108.0); BG SAMPLE SITE RIGHT RADIAL; BG TOTAL HEMOGLOBIN 9.5 g/dL (12.0-16.0); BG VENT MODE NASAL CANNULA
[2024-12-25 16:15] LABS: CLARITY URINE TURBID (CLEAR); COLOR URINE DARK YELLOW (YELLOW); GLUCOSE URINE NEGATIVE (NEGATIVE); KETONES URINE NEGATIVE (NEGATIVE); LEUKOCYTE ESTERASE URINE 3+ (NEGATIVE); NITRITE URINE NEGATIVE (NEGATIVE); OCCULT BLOOD URINE 2+ (NEGATIVE); PROTEIN URINE 1+ (NEGATIVE); SPECIFIC GRAVITY URINE 1.012 (1.005-1.030)
[2024-12-25 17:19] LABS: BACTERIA URINE 4+; SQUAMOUS EPITHELIAL CELL URINE 1+ /lpf (RARE/1+); YEAST URINE 2+
[2024-12-25 17:20] LABS: WBC URINE 50-100 /hpf (0-2)
[2024-12-25] MEDS: ACETAMINOPHEN 325MG TABLET PO PRN (20:44)
[2024-12-26] VITALS (18 sets, daily range): BP systolic 109–146; BP diastolic 47–86; PULSE 71–92; RESP 12–22; TEMP 36.8–37.6; O2SAT 93–99
[2024-12-26] MEDS: ACETAMINOPHEN 325MG TABLET PO PRN (04:45)
[2024-12-26 08:16] LABS: BASOPHILS % 0.3 % (0.0-2.0); HEMATOCRIT. 25.3 % (36.0-48.0); HEMOGLOBIN. 8.3 g/dL (12.0-16.0); MEAN CORPUSCULAR HGB CONC 32.8 g/dL (31.0-37.0); MEAN CORPUSCULAR VOLUME 91.4 fL (81.0-99.0); MEAN PLATELET VOLUME 8.6 fl (7.4-10.4); MONOCYTES % 13.5 % (2.0-8.0); NEUTROPHILS % 71.2 % (40.0-76.0); PLATELET 245 x1000/uL (130-400); RED BLOOD CELL COUNT 2.77 mill/uL (4.2-5.4); RED CELL DISTRIBUTION WIDTH 14.8 % (11.6-14.6); WHITE BLOOD COUNT 11.8 x1000/uL (4.5-11.0)
[2024-12-26 08:43] LABS: POTASSIUM 3.9 mEq/L (3.5-5.1)
[2024-12-26 08:44] LABS: CALCIUM 9.8 mg/dL (8.7-10.4)
[2024-12-26 08:58] LABS: CREATININE 5.5 mg/dL (0.6-1.0)
[2024-12-26 10:09] LABS: ANTI-NUCLEAR ANTIBODIES DIRECT Negative (Negative)
[2024-12-26] MEDS: CEFTRIAXONE 1GM/50ML 50 ML IV SCH (12:15)
[2024-12-26] MEDS: ENOXAPARIN 30MG/0.3ML SYR SUBCUT SCH (17:31)
[2024-12-26] MEDS: GABAPENTIN 300MG CAPSULE PO NR (21:40)
[2024-12-27] VITALS (24 sets, daily range): BP systolic 104–145; BP diastolic 47–121; PULSE 74–96; RESP 11–25; TEMP 36.3–37.1; O2SAT 95–100
[2024-12-27 06:18] LABS: BASOPHILS % 0.2 % (0.0-2.0); EOSINOPHILS % 0.7 % (0.0-5.0); HEMATOCRIT. 26.5 % (36.0-48.0); HEMOGLOBIN. 8.5 g/dL (12.0-16.0); LYMPHOCYTES % 12.8 % (20.0-50.0); MEAN CORPUSCULAR HEMOGLOBIN 29.7 pg (28.0-32.0); MEAN CORPUSCULAR HGB CONC 32.3 g/dL (31.0-37.0); MEAN CORPUSCULAR VOLUME 91.9 fL (81.0-99.0); MEAN PLATELET VOLUME 8.9 fl (7.4-10.4); MONOCYTES % 10.6 % (2.0-8.0); NEUTROPHILS % 75.7 % (40.0-76.0); PLATELET 238 x1000/uL (130-400); RED BLOOD CELL COUNT 2.88 mill/uL (4.2-5.4); RED CELL DISTRIBUTION WIDTH 15.1 % (11.6-14.6); WHITE BLOOD COUNT 12.3 x1000/uL (4.5-11.0)
[2024-12-27 06:28] LABS: POTASSIUM 4.1 mEq/L (3.5-5.1)
[2024-12-27 06:29] LABS: CALCIUM 9.5 mg/dL (8.7-10.4)
[2024-12-27 06:49] LABS: CREATININE 6.1 mg/dL (0.6-1.0)
[2024-12-27 08:07] LABS: ERYTHROCYTE SEDIMENTATION RATE 100 mm/hr (0-30)
[2024-12-27 08:11] LABS: COMPLEMENT C3 155 mg/dL (82-167); COMPLEMENT C4 43 mg/dL (12-38)
[2024-12-27] MEDS: PREDNISONE 10MG TABLET PO SCH (09:04)
[2024-12-27] MEDS: GABAPENTIN 300MG CAPSULE PO SCH (09:04)
[2024-12-27] MEDS ORDERED: PREDNISONE 20MG TABLET PO NR (14:15)
[2024-12-27] MEDS: VANCOMYCIN 1G PREMIX 200 ML IV NR (14:40)
[2024-12-27] MEDS: PREDNISONE 10MG TABLET PO NR (14:40)
[2024-12-27] MEDS: COLCHICINE 0.6MG TABLET PO NR (14:40)
[2024-12-27 17:07] LABS: *CREATININE RANDOM URINE 97.5 mg/dL (Not Estab.); MICROALBUMIN RANDOM URINE 160.6 ug/mL (Not Estab.)
[2024-12-28] VITALS (15 sets, daily range): BP systolic 108–156; BP diastolic 49–103; PULSE 69–87; RESP 12–24; TEMP 36.3–36.9; O2SAT 95–100
[2024-12-28] MEDS ORDERED: ACETAMINOPHEN 325MG TABLET PO PRN (01:15)
[2024-12-28 07:47] LABS: POTASSIUM 3.9 mEq/L (3.5-5.1)
[2024-12-28 07:48] LABS: CALCIUM 9.6 mg/dL (8.7-10.4)
[2024-12-28 07:53] LABS: CREATININE 4.7 mg/dL (0.6-1.0)
[2024-12-28 07:55] LABS: PHOSPHORUS 3.5 mg/dL (2.5-4.9)
[2024-12-28 08:02] LABS: BASOPHILS % 0.1 % (0.0-2.0); EOSINOPHILS % 0.8 % (0.0-5.0); HEMATOCRIT. 25.8 % (36.0-48.0); HEMOGLOBIN. 8.4 g/dL (12.0-16.0); LYMPHOCYTES % 9.2 % (20.0-50.0); MEAN CORPUSCULAR HEMOGLOBIN 29.8 pg (28.0-32.0); MEAN CORPUSCULAR HGB CONC 32.6 g/dL (31.0-37.0); MEAN CORPUSCULAR VOLUME 91.4 fL (81.0-99.0); MEAN PLATELET VOLUME 8.6 fl (7.4-10.4); MONOCYTES % 9.4 % (2.0-8.0); NEUTROPHILS % 80.5 % (40.0-76.0); PLATELET 212 x1000/uL (130-400); RED BLOOD CELL COUNT 2.83 mill/uL (4.2-5.4); RED CELL DISTRIBUTION WIDTH 15.4 % (11.6-14.6)
[2024-12-28] MEDS: COLCHICINE 0.6MG TABLET PO NR (08:57)
[2024-12-28] MEDS: FUROSEMIDE 100MG/10ML VIAL IVP NR (08:58)
[2024-12-28] MEDS: PREDNISONE 20MG TABLET PO SCH (08:59)
[2024-12-28 10:07] LABS: ANTI-MYELOPEROXIDASE AB < 0.2 units (0.0-0.9); ANTI-PROTEINASE 3 ABS < 0.2 units (0.0-0.9)
[2024-12-28] MEDS: GABAPENTIN 300MG CAPSULE PO SCH (20:46)
[2024-12-29] VITALS (21 sets, daily range): BP systolic 114–158; BP diastolic 62–91; PULSE 70–86; RESP 14–25; TEMP 36.3–36.9; O2SAT 95–100
[2024-12-29 05:53] LABS: CALCIUM 9.6 mg/dL (8.7-10.4)
[2024-12-29 06:19] LABS: BASOPHILS % 0.1 % (0.0-2.0); EOSINOPHILS % 0.6 % (0.0-5.0); HEMATOCRIT. 27.6 % (36.0-48.0); HEMOGLOBIN. 8.8 g/dL (12.0-16.0); LYMPHOCYTES % 10.6 % (20.0-50.0); MEAN CORPUSCULAR HEMOGLOBIN 29.3 pg (28.0-32.0); MEAN CORPUSCULAR HGB CONC 31.8 g/dL (31.0-37.0); MEAN CORPUSCULAR VOLUME 92.1 fL (81.0-99.0); MONOCYTES % 9.2 % (2.0-8.0); NEUTROPHILS % 79.5 % (40.0-76.0); PLATELET 232 x1000/uL (130-400); RED CELL DISTRIBUTION WIDTH 15.5 % (11.6-14.6); WHITE BLOOD COUNT 12.8 x1000/uL (4.5-11.0)
[2024-12-29 06:23] LABS: CREATININE 5.3 mg/dL (0.6-1.0)
[2024-12-29] MEDS: FLUCONAZOLE 100MG TABLET PO SCH (13:08)
[2024-12-29] MEDS ORDERED: LINE600T11 PO (14:11)
[2024-12-29] MEDS ORDERED: P20 PO (14:11)
[2024-12-29] MEDS ORDERED: FLUC100T PO (14:11)
[2024-12-29] MEDS: LINEZOLID 600MG TABLET PO SCH (22:08)
[2024-12-30 04:07] LABS: ATYPICAL P-ANCA <1:20 titer (Neg:<1:20); CYTOPLASMIC C-ANCA <1:20 titer (Neg:<1:20); PERINUCLEAR P-ANCA <1:20 titer (Neg:<1:20)
== END 2024-12-29 22:30 | DRG 871 ==
LOC: 5EST 13:23
PROVIDERS: ADMIT Internal Medicine; ATTEND Internal Medicine
PROC: 5A0935A Assistance with Respiratory Ventilation, Less than 24 Consecutive Hours, High Flow/Velocity Cannula (ICD-10-PCS; 2024-12-22)
PROC: 02HV33Z Insertion of Infusion Device into Superior Vena Cava, Percutaneous Approach (ICD-10-PCS; principal; 2024-12-23)
PROC: B548ZZA Ultrasonography of Superior Vena Cava, Guidance (ICD-10-PCS; 2024-12-23)
PROC: 5A09357 Assistance with Respiratory Ventilation, Less than 24 Consecutive Hours, Continuous Positive Airway Pressure (ICD-10-PCS; 2024-12-23)
PROC: 5A1D70Z Performance of Urinary Filtration, Intermittent, Less than 6 Hours Per Day (ICD-10-PCS; 2024-12-23)
PROC: 5A1D70Z Performance of Urinary Filtration, Intermittent, Less than 6 Hours Per Day (ICD-10-PCS; 2024-12-25)
PROC: 5A09357 Assistance with Respiratory Ventilation, Less than 24 Consecutive Hours, Continuous Positive Airway Pressure (ICD-10-PCS; 2024-12-26)
PROC: 5A09357 Assistance with Respiratory Ventilation, Less than 24 Consecutive Hours, Continuous Positive Airway Pressure (ICD-10-PCS; 2024-12-27)
PROC: 5A1D70Z Performance of Urinary Filtration, Intermittent, Less than 6 Hours Per Day (ICD-10-PCS; 2024-12-27)
PROC: 5A1D70Z Performance of Urinary Filtration, Intermittent, Less than 6 Hours Per Day (ICD-10-PCS; 2024-12-29)
DX: A41.9 Sepsis, unspecified organism (principal); G82.50 Quadriplegia, unspecified; J96.02 Acute respiratory failure with hypercapnia; N17.0 Acute kidney failure with tubular necrosis; J69.0 Pneumonitis due to inhalation of food and vomit; G92.8 Other toxic encephalopathy; J96.20 Acute and chronic respiratory failure, unspecified whether with hypoxia or hypercapnia; I13.0 Hypertensive heart and chronic kidney disease with heart failure and stage 1 through stage 4 chronic kidney disease, or unspecified chronic kidney disease; I16.1 Hypertensive emergency; Z68.42 Body mass index [BMI] 45.0-49.9, adult; G99.2 Myelopathy in diseases classified elsewhere; E66.2 Morbid (severe) obesity with alveolar hypoventilation; N39.0 Urinary tract infection, site not specified; Z16.21 Resistance to vancomycin; J45.909 Unspecified asthma, uncomplicated; N18.30 Chronic kidney disease, stage 3 unspecified; E87.5 Hyperkalemia; R34 Anuria and oliguria; I50.9 Heart failure, unspecified; E78.5 Hyperlipidemia, unspecified; M48.02 Spinal stenosis, cervical region; J44.89 Other specified chronic obstructive pulmonary disease; D64.9 Anemia, unspecified; E78.00 Pure hypercholesterolemia, unspecified; M50.10 Cervical disc disorder with radiculopathy, unspecified cervical region; M10.9 Gout, unspecified; B95.2 Enterococcus as the cause of diseases classified elsewhere; E11.22 Type 2 diabetes mellitus with diabetic chronic kidney disease; E83.52 Hypercalcemia; K21.9 Gastro-esophageal reflux disease without esophagitis; K59.00 Constipation, unspecified; Z86.718 Personal history of other venous thrombosis and embolism; Z79.899 Other long term (current) drug therapy; Z79.51 Long term (current) use of inhaled steroids; Z82.49 Family history of ischemic heart disease and other diseases of the circulatory system; Z85.3 Personal history of malignant neoplasm of breast; Z86.16 Personal history of COVID-19; Z88.5 Allergy status to narcotic agent; Z90.12 Acquired absence of left breast and nipple; Z95.828 Presence of other vascular implants and grafts; Z99.2 Dependence on renal dialysis
CPT/HCPCS: 36415; 36556; 36600; 71045; 76770; 76937; 80048; 80076; 81003; 82043; 82140; 82375; 82550; 82570; 82805; 82962; 83520; 83605; 83735; 84100; 84145; 84484; 84550; 85025; 85379; 85651; 86038; 86160; 86256; 86705; 86706; 86709; 87077; 87106; 87186; 87340; 90935; 93005; 93308; 94070; 94640; 94660; 94664; 94760; 97110; 97116; 97162; 97166; 97530; 97535; C1752; J0360; J0610; J0696; J1650; J1940; J2003; J2310; J2470; J2543; J2919; J3370; J3490; J7060; J7512